=== PATIENT | female | born 1965 | race Caucasian/White ===

== ENCOUNTER 2016-07-10 15:26 | Outpatient (CLI) ==
--- NOTE | 2016-07-10 16:13 | DI ---
EXAM: PA and lateral views of the chest HISTORY: Cough COMPARISON: None available FINDINGS: No focal consolidation, pleural effusion or pneumothorax is identified. A tiny left basilar calcifi ed granuloma is suspected. The cardiomediastinal silhouette is within normal limits. IMPRESSION: No acute cardiopulmonary findings.
== END 2016-07-10 15:27 | disposition home or self-care (01) ==
LOC: RAD 15:26
PROVIDERS: ATTEND Internal Medicine
DX: J40 Bronchitis, not specified as acute or chronic (principal)